=== PATIENT | female | born 1995 | race Caucasian/White ===

== ENCOUNTER 2017-02-20 17:25 | Emergency (ER) | payer MEDICAID ==
[2017-02-20 17:26] VITALS: BMI 23.4
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
[2017-02-20 18:02] LABS: BASO # 0.1 K/uL (0.0-0.2); EOS # 0.1 K/uL (0.0-0.7); EOS % 1.1 % (0.0-4.0); HEMATOCRIT 43.3 % (34.0-47.0); LYMPH # 1.8 K/uL (1.0-4.3); LYMPH % 22.6 % (20.0-40.0); MEAN CELL VOLUME 94.8 fL (81.0-99.0); MEAN CORPUSCULAR HEMOGLOBIN 32.3 pg (27.0-31.0); MEAN PLATELET VOLUME 7.3 fL (7.2-11.7); MONO # 0.5 K/uL (0.0-0.8); MONO % 6.8 % (0.0-10.0); RED CELL DISTRIBUTION WIDTH 13.3 % (11.5-14.5); WHITE BLOOD COUNT 7.8 K/uL (4.8-10.8)
[2017-02-20 18:03] LABS: RBC URINE 2 /hpf (0-3); URINE BACTERIA RARE (<OCC); URINE BILIRUBIN NEGATIVE (NEGATIVE); URINE BLOOD NEGATIVE (NEGATIVE); URINE COLOR Yellow (YELLOW); URINE GLUCOSE (UA) NORMAL (Normal); URINE KETONE NEGATIVE (NEGATIVE); URINE LEUKOCYTE ESTERASE NEG Leu/uL (Negative); URINE PROTEIN NEGATIVE (NEGATIVE); URINE UROBILINOGEN NORMAL mg/dL (0.2-1.0); WBC URINE 2 /hpf (0-5)
[2017-02-20 18:14] LABS: CHLORIDE 100 mmol/L (98-107); POTASSIUM 4.2 mmol/L (3.6-5.2); SODIUM 141 mmol/L (132-148)
[2017-02-20 18:16] LABS: GFR AFRICAN-AMERICAN > 60
[2017-02-20 18:17] LABS: ALB/GLOB RATIO 1.2 (1.0-2.1); ALKALINE PHOSPHATASE 54 U/L (38-126); ALT/SGPT 20 U/L (9-52); AST/SGOT 16 U/L (14-36); BILIRUBIN,TOTAL 0.4 mg/dL (0.2-1.3); BLOOD UREA NITROGEN 13 mg/dL (7-17); CALCIUM 9.6 mg/dl (8.6-10.4); CARBON DIOXIDE 27 mmol/L (22-30); GLUCOSE,RANDOM 92 mg/dL (65-105); TOTAL PROTEIN 7.2 g/dL (6.3-8.3)
[2017-02-20 18:18] LABS: ALCOHOL SERUM < 10 mg/dl (0-10)
[2017-02-20 19:37] VITALS: BP 103/71; PULSE 76; RESP 20; TEMP 98.1
[2017-02-21 08:24] VITALS: O2SAT 99
== END 2017-02-20 19:37 | disposition home or self-care (01) ==
LOC: C.ER 17:25
DX: F31.9 Bipolar disorder, unspecified (principal); F90.9 Attention-deficit hyperactivity disorder, unspecified type

== ENCOUNTER 2017-03-23 01:28 | Emergency (ER) | payer MEDICAID ==
[2017-03-23 01:43] VITALS: RESP 20; TEMP 99; O2SAT 100
[2017-03-23 01:58] LABS: RBC URINE 1 /hpf (0-3); URINE BACTERIA RARE (<OCC); URINE BILIRUBIN NEGATIVE (NEGATIVE); URINE BLOOD NEGATIVE (NEGATIVE); URINE COLOR Yellow (YELLOW); URINE GLUCOSE (UA) NORMAL (Normal); URINE KETONE NEGATIVE (NEGATIVE); URINE LEUKOCYTE ESTERASE NEG Leu/uL (Negative); URINE PROTEIN NEGATIVE (NEGATIVE); WBC URINE 2 /hpf (0-5)
[2017-03-23 02:15] LABS: BASO # 0.1 K/uL (0.0-0.2); BASO % 0.7 % (0.0-2.0); EOS # 0.1 K/uL (0.0-0.7); EOS % 1.9 % (0.0-4.0); HEMATOCRIT 41.5 % (34.0-47.0); LYMPH # 2.6 K/uL (1.0-4.3); LYMPH % 33.8 % (20.0-40.0); MEAN CELL VOLUME 95.8 fL (81.0-99.0); MEAN CORPUSCULAR HEMOGLOBIN 32.7 pg (27.0-31.0); MEAN CORPUSCULAR HGB CONC 34.1 g/dL (33.0-37.0); MEAN PLATELET VOLUME 8.1 fL (7.2-11.7); MONO # 0.4 K/uL (0.0-0.8); MONO % 4.9 % (0.0-10.0); NRBC % 0.2 % (0.0-2.0); RED CELL DISTRIBUTION WIDTH 12.8 % (11.5-14.5); WHITE BLOOD COUNT 7.8 K/uL (4.8-10.8)
[2017-03-23 02:25] LABS: CHLORIDE 101 mmol/L (98-107); SODIUM 141 mmol/L (132-148)
[2017-03-23 02:27] LABS: AST/SGOT 15 U/L (14-36); BILIRUBIN,TOTAL 0.4 mg/dL (0.2-1.3); CARBON DIOXIDE 25 mmol/L (22-30); GFR AFRICAN-AMERICAN > 60
[2017-03-23 02:28] LABS: ALB/GLOB RATIO 1.3 (1.0-2.1); ALKALINE PHOSPHATASE 41 U/L (38-126); ALT/SGPT 23 U/L (9-52); BLOOD UREA NITROGEN 11 mg/dL (7-17); CALCIUM 8.5 mg/dl (8.6-10.4); GLUCOSE,RANDOM 58 mg/dL (65-105); TOTAL PROTEIN 7.1 g/dL (6.3-8.3)
[2017-03-23] MEDS ORDERED: cefTRIAXone (Rocephin) 250 mg Inj IM STA (03:29)
--- NOTE | 2017-03-23 03:34 | C.PDOC ---
History Of Present Illness 21 year old female presents to the ED with complaints of abdominal pain intermittently for one month. Patient notes pain is exacerbated by movement and has associated nausea and increased frequency of urination. She states doctor believes she has "ovarian cysts" and referred the patient to have a US performed but she has not followed up. Patient denies fever, vomiting, vaginal bleeding, or diarrhea. Time Seen by Provider: 03/23/17 01:34 Chief Complaint (Nursing): Abdominal Pain History Per: Patient History/Exam Limitations: no limitations Onset/Duration Of Symptoms: Intermittent Episodes (1 month ) Current Symptoms Are (Timing): Still Present Location Of Pain/Discomfort: Suprapubic Radiation Of Pain To:: None Quality Of Discomfort: "Pain" Associated Symptoms: Nausea. denies: Fever, Chills, Vomiting, Diarrhea Exacerbating Factors: None Alleviating Factors: None Recent travel outside of the [place]: No Abnormal Vaginal Bleeding: No Past Medical History Reviewed: Historical Data, Nursing Documentation, Vital Signs Vital Signs: Last Vital Signs Temp 99 F 03/23/17 01:36 Pulse 78 03/23/17 05:30 Resp 20 03/23/17 05:30 BP 107/62 03/23/17 05:30 Pulse Ox 100 03/23/17 05:30 Family History: States: Unknown Family Hx - Social History Hx Alcohol Use: Yes Hx Substance Use: Yes - Immunization History Hx Tetanus Toxoid Vaccination: No Hx Influenza Vaccination: No Hx Pneumococcal Vaccination: No Review Of Systems Constitutional: Negative for: Fever, Chills Cardiovascular: Negative for: Chest Pain, Palpitations Respiratory: Negative for: Cough, Shortness of Breath Gastrointestinal: Positive for: Nausea, Abdominal Pain. Negative for: Vomiting , Diarrhea Genitourinary: Positive for: Frequency (increased frequency ). Negative for: Dysuria, Hematuria Physical Exam - Physical Exam Appears: Non-toxic, No Acute Distress Skin: Warm, Dry, No Rash Head: Atraumatic, Normacephalic Eye(s): bilateral: Normal Inspection Oral Mucosa: Moist Chest: Symmetrical, No Deformity Cardiovascular: Rhythm Regular, No Friction Rub, No Murmur Respiratory: Normal Breath Sounds, No Rales, No Rhonchi, No Wheezing Gastrointestinal/Abdominal: Soft, No Tenderness, No Distention, No Guarding, No Rebound Pelvic: Normal External Exam, No Vaginal Bleeding, Vaginal Discharge (scant yellow/hancock discharge ), No Cervical Motion Tenderness Extremity: Normal ROM, No Tenderness Neurological/Psych: Oriented x3, Normal Speech, Normal Motor Gait: Steady ED Course And Treatment - Laboratory Results Result Diagrams: 03/23/17 02:12 03/23/17 02:12 O2 Sat by Pulse Oximetry: 100 (room air ) Progress Note: Labs were ordered and patient was given Zithromax, Rocephin, and Toradol. Disposition - Disposition Referrals: [facility] [Outside] Disposition: HOME/ ROUTINE Disposition Time: 05:01 Condition: GOOD Additional Instructions: Follow up with the medical doctor within 1-2 days. Return if worsened. Prescriptions: Doxycycline Hyclate 100 mg PO BID #20 cap Ibuprofen Susp [Motrin Oral Susp] 400 mg PO Q6 PRN #250 ml PRN Reason: Fever metroNIDAZOLE [Flagyl] 500 mg PO BID #20 tab Instructions: Vaginitis (ED) Forms: [email or web address] (Niuean) - Clinical Impression Clinical Impression: Vaginitis - PA / BUDGET DIRECTOR / Resident Statement MD/DO has reviewed & agrees with the documentation as recorded. - Scribe Statement The provider has reviewed the documentation as recorded by the Scribe Kay Moe All medical record entries made by the Scribe were at my direction and personally dictated by me. I have reviewed the chart and agree that the record accurately reflects my personal performance of the history, physical exam, medical decision making, and the department course for this patient. I have also personally directed, reviewed, and agree with the discharge instructions and disposition.
[2017-03-23 05:32] VITALS: BP 107/62; PULSE 78
== END 2017-03-23 05:32 | disposition home or self-care (01) ==
LOC: C.ER 01:28
DX: N76.0 Acute vaginitis (principal)
CPT/HCPCS: 80053; 81001; 82948; 83690; 84703; 85025; 96372; 96374; 99285; J0696; J1885

== ENCOUNTER 2017-08-21 21:06 | Emergency (ER) | payer MEDICAID ==
[2017-08-21 21:07] VITALS: BMI 23.4
[2017-08-21 21:41] VITALS: BP 112/78; PULSE 87; TEMP 98.2; O2SAT 100
--- NOTE | 2017-08-21 22:54 | C.PDOC ---
History Of Present Illness 22 year old female presents to the ED for evaluation of bilateral breast pain intermittently x2 weeks. Patient has family hx breast cancer, one aunt with breast CA. Patient also requesting test. No other acute complaints at this time. Time Seen by Provider: 08/21/17 21:53 Chief Complaint (Nursing): Breast Problem History Per: Patient History/Exam Limitations: no limitations Onset/Duration Of Symptoms: Days Current Symptoms Are (Timing): Still Present Recent travel outside of the [place]: No Past Medical History Reviewed: Historical Data, Nursing Documentation, Vital Signs Vital Signs: Last Vital Signs Temp 98.2 F 08/21/17 21:36 Pulse 87 08/21/17 21:36 Resp 20 08/21/17 22:59 BP 112/78 08/21/17 21:36 Pulse Ox 100 08/21/17 23:51 - Medical History PMH: Bipolar Disorder, Depression Denies: Chronic Kidney Disease Family History: States: Other Other Family History: Aunt with breast CA - Social History Hx Tobacco Use: Yes Hx Alcohol Use: Yes Hx Substance Use: Yes - Immunization History Hx Tetanus Toxoid Vaccination: Yes Hx Influenza Vaccination: No Hx Pneumococcal Vaccination: No Review Of Systems Constitutional: Negative for: Fever, Chills ENT: Negative for: Ear Pain, Throat Pain Cardiovascular: Negative for: Chest Pain Respiratory: Positive for: Other (Breast pain). Negative for: Cough, Shortness of Breath Gastrointestinal: Negative for: Nausea, Vomiting, Abdominal Pain Physical Exam - Physical Exam Appears: Well, Non-toxic, No Acute Distress Skin: Normal Color, Warm, Dry Head: Atraumatic, Normacephalic Eye(s): bilateral: Normal Inspection, PERRL, EOMI Chest: Symmetrical, Other (Breast exam: no skin changes, no erythema, no nipple inversion, no palpable masses, symmetrical ) Cardiovascular: Rhythm Regular Respiratory: Normal Breath Sounds Extremity: Normal ROM Neurological/Psych: Oriented x3, Normal Speech ED Course And Treatment O2 Sat by Pulse Oximetry: 100 Progress Note: Urine HCG negative. Pt will follow up in medical or apprenticeship representative clinic for further evaluation. Advised tylenol or advil for pain. Will discharge patient home for outpatient follow up. Pt understand and agreed with plan Disposition Counseled Patient/Family Regarding: Diagnosis, Need For Followup, Rx Given - Disposition Referrals: [facility] [Outside] Disposition: HOME/ ROUTINE Disposition Time: 22:52 Condition: STABLE Additional Instructions: Tylenol or advil for pain Follow up with medical clinic for further evaluation Return to ER if worse Instructions: Mastalgia (DC) Forms: [employer] (Urdu) - Clinical Impression Clinical Impression: Pain of breast - Scribe Statement The provider has reviewed the documentation as recorded by the Scribe (Noe Field) All medical record entries made by the Scribe were at my direction and personally dictated by me. I have reviewed the chart and agree that the record accurately reflects my personal performance of the history, physical exam, medical decision making, and the department course for this patient. I have also personally directed, reviewed, and agree with the discharge instructions and disposition.
[2017-08-21 22:59] VITALS: RESP 20
== END 2017-08-21 22:59 | disposition home or self-care (01) ==
LOC: C.ER 21:06
DX: N64.4 Mastodynia (principal); Z72.0 Tobacco use; Z80.3 Family history of malignant neoplasm of breast

== ENCOUNTER 2017-09-10 14:40 | Emergency (ER) | payer MEDICAID ==
[2017-09-10 14:45] VITALS: BMI 22.6
[2017-09-10 14:47] VITALS: RESP 18; O2SAT 100
[2017-09-10] MEDS ORDERED: Sodium Chloride 0.9% 1,000 ML IV ONE (15:02)
--- NOTE | 2017-09-10 15:20 | C.PDOC ---
History Of Present Illness 22 year old male presents to the ED c/o abdominal pain that has been worsening for the past few hours. Patient states her pain is located in the right adnexal and suprapubic area associated with nausea, and dizziness. Patient denies fever , dysuria, vaginal bleeding, vaginal discharge, back pain. Patient's LMP was 3 weeks ago. Time Seen by Provider: 09/10/17 14:54 Chief Complaint (Nursing): Abdominal Pain History Per: Patient History/Exam Limitations: no limitations Onset/Duration Of Symptoms: Days Current Symptoms Are (Timing): Still Present Location Of Pain/Discomfort: Suprapubic Radiation Of Pain To:: None Quality Of Discomfort: "Pain" Associated Symptoms: Nausea Exacerbating Factors: None Alleviating Factors: None Recent travel outside of the [place]: No Additional History Per: Patient Abnormal Vaginal Bleeding: No Last Menstral Period: 3 weeks ago Past Medical History Reviewed: Historical Data, Nursing Documentation, Vital Signs Vital Signs: Last Vital Signs Temp 98.1 F 09/10/17 18:17 Pulse 60 09/10/17 18:17 Resp 18 09/10/17 18:17 BP 105/59 L 09/10/17 18:17 Pulse Ox 100 09/10/17 18:28 - Medical History PMH: Bipolar Disorder, Depression Denies: Chronic Kidney Disease Surgical History: No Surg Hx Family History: States: Unknown Family Hx - Social History Hx Tobacco Use: Yes Hx Alcohol Use: Yes Hx Substance Use: Yes - Immunization History Hx Tetanus Toxoid Vaccination: Yes Hx Influenza Vaccination: No Hx Pneumococcal Vaccination: No Review Of Systems Except As Marked, All Systems Reviewed And Found Negative. Gastrointestinal: Positive for: Nausea, Abdominal Pain Physical Exam - Physical Exam Appears: Non-toxic, No Acute Distress Skin: Normal Color, Warm, Dry Head: Atraumatic, Normacephalic Eye(s): bilateral: Normal Inspection Nose: No Discharge Oral Mucosa: Moist Neck: Normal ROM, Supple Chest: Symmetrical Cardiovascular: Rhythm Regular, No Murmur Respiratory: Normal Breath Sounds, No Rales, No Rhonchi, No Wheezing Gastrointestinal/Abdominal: Soft, Tenderness (Suprapubic), No Guarding, No Rebound Extremity: Normal ROM, No Tenderness, No Swelling Neurological/Psych: Oriented x3 ED Course And Treatment - Laboratory Results Result Diagrams: 09/10/17 15:17 09/10/17 15:17 O2 Sat by Pulse Oximetry: 100 (On RA) Pulse Ox Interpretation: Normal Medical Decision Making Medical Decision Making: Impression: abdominal pain onsider pelvic pathology, uti, colitis, appendiciits Plan: * Labs * IV fluids * Tylenol 975 mg PO * Zofran 4 mg IVP * UA * Transvaginal US pt with rlq ttp ct added. neg. pt observed on phone in nad. pain improved. asking for dc Disposition - Disposition Referrals: Mau Larkin MD [Staff Provider] - [facility] [Outside] [facility] [Outside] Disposition: HOME/ ROUTINE Disposition Time: 18:14 Condition: STABLE Additional Instructions: follow up with specialist and clinic return to er with worsening symptoms or concerns Instructions: Acute Abdomen (Belly Pain) Forms: [facility] (Syriac) - Clinical Impression Clinical Impression: Abdominal pain - Scribe Statement The provider has reviewed the documentation as recorded by the Scribe Arsenio Nuno All medical record entries made by the Scribe were at my direction and personally dictated by me. I have reviewed the chart and agree that the record accurately reflects my personal performance of the history, physical exam, medical decision making, and the department course for this patient. I have also personally directed, reviewed, and agree with the discharge instructions and disposition.
[2017-09-10 15:23] LABS: BASO # 0.1 K/uL (0.0-0.2); BASO % 1.1 % (0.0-2.0); EOS # 0.1 K/uL (0.0-0.7); EOS % 2.1 % (0.0-4.0); HEMOGLOBIN 14.5 g/dL (11.0-16.0); LYMPH # 2.3 K/uL (1.0-4.3); LYMPH % 34.4 % (20.0-40.0); MEAN CELL VOLUME 95.3 fL (81.0-99.0); MEAN CORPUSCULAR HEMOGLOBIN 32.6 pg (27.0-31.0); MEAN CORPUSCULAR HGB CONC 34.2 g/dL (33.0-37.0); MEAN PLATELET VOLUME 7.4 fL (7.2-11.7); MONO # 0.5 K/uL (0.0-0.8); NEUT # 3.7 K/uL (1.8-7.0); NEUT % 55.4 % (50.0-75.0); NRBC % 0.1 % (0.0-2.0); RBC 4.45 Mil/uL (3.80-5.20); RED CELL DISTRIBUTION WIDTH 12.8 % (11.5-14.5); WHITE BLOOD COUNT 6.6 K/uL (4.8-10.8)
[2017-09-10 15:25] LABS: HCG,QUALITATIVE URINE NEGATIVE (NEGATIVE)
[2017-09-10 15:26] LABS: SQUAMOUS EPITHIAL 3 /hpf (0-5); URINE BILIRUBIN NEGATIVE (NEGATIVE); URINE BLOOD NEGATIVE (NEGATIVE); URINE CLARITY Clear (Clear); URINE COLOR Yellow (YELLOW); URINE GLUCOSE (UA) NORMAL (Normal); URINE LEUKOCYTE ESTERASE NEG Leu/uL (Negative); URINE PROTEIN NEGATIVE (NEGATIVE); URINE UROBILINOGEN NORMAL mg/dL (0.2-1.0)
[2017-09-10] MEDS ORDERED: Sodium Chloride 0.9% 1,000 ML ONE (15:30)
[2017-09-10 15:31] LABS: PROTHROMBIN TIME 10.9 SECONDS (9.7-12.2)
[2017-09-10 15:36] LABS: ALB/GLOB RATIO 1.3 (1.0-2.1); ALT/SGPT 20 U/L (9-52); AST/SGOT 23 U/L (14-36); BLOOD UREA NITROGEN 10 mg/dL (7-17); CALCIUM 8.4 mg/dl (8.6-10.4); GFR AFRICAN-AMERICAN > 60; GFR NON-AFRICAN AMERICAN > 60; LIPASE 70 U/L (23-300)
--- NOTE | 2017-09-10 16:33 | US ---
HISTORY: pelvic pain COMPARISON: None available. TECHNIQUE: Real-time transabdominal pelvic ultrasound was performed. In addition a transvaginal pelvic ultrasound was necessary to better depict pelvic anatomy. FINDINGS: UTERUS: Measures 7.7 x 3.3 x 4.7 cm. Anteverted. ENDOMETRIUM: Measures approximately 7 mm in diameter. CERVIX: No cervical abnormality identified. RIGHT OVARY: Measures 3.1 x 2.1 x 2.9 cm. Blood flow is demonstrated. LEFT OVARY: Measures 3.5 x 2.3 x 3.2 cm. Blood flow is demonstrated. FREE FLUID: No significant free fluid noted. OTHER FINDINGS: None. IMPRESSION: Unremarkable pelvic ultrasound as above.
[2017-09-10] MEDS ORDERED: Iodixanol 320 MG/ML 100 ML BOTTLE IV ONE (17:18)
--- NOTE | 2017-09-10 18:03 | CT ---
PROCEDURE: CT Abdomen and Pelvis with contrast HISTORY: lower abd pain COMPARISON: 02/14/2016 TECHNIQUE: Contrast dose: 100 mL Visipaque 320 Radiation dose: Total exam DLP = 261.67 mGy-cm. This CT exam was performed using one or more of the following dose reduction techniques: Automated exposure control, adjustment of the mA and/or kV according to patient size, and/or use of iterative reconstruction technique. FINDINGS: LOWER THORAX: Unremarkable. LIVER: Unremarkable. No gross lesion or ductal dilatation. GALLBLADDER AND BILE DUCTS: Unremarkable. PANCREAS: Unremarkable. No gross lesion or ductal dilatation. SPLEEN: Unremarkable. ADRENALS: Unremarkable. No mass. KIDNEYS AND URETERS: Unremarkable. No hydronephrosis. No solid mass. VASCULATURE: Unremarkable. No aortic aneurysm. BOWEL: Unremarkable. No obstruction. No gross mural thickening. APPENDIX: Normal appendix. PERITONEUM: Unremarkable. No free fluid. No free air. LYMPH NODES: Unremarkable. No enlarged lymph nodes. BLADDER: Unremarkable. REPRODUCTIVE: Normal uterus. No adnexal masses. BONES: No acute fracture. OTHER FINDINGS: None. IMPRESSION: Unremarkable contrast enhanced CT of the abdomen and pelvis. No evidence of acute appendicitis.
[2017-09-10 18:19] VITALS: BP 105/59; PULSE 60; TEMP 98.1
== END 2017-09-10 18:18 | disposition home or self-care (01) ==
LOC: C.ER 14:40
DX: R10.9 Unspecified abdominal pain (principal)
CPT/HCPCS: 74177; 76830; 76856; 80053; 81001; 83690; 84703; 85025; 85610; 85730; 96361; 96374; 99284; J2405; J7040; Q9967

== ENCOUNTER 2017-11-20 02:15 | Emergency (ER) | payer MEDICAID ==
[2017-11-20 02:16] VITALS: BMI 22.6
[2017-11-20 02:55] LABS: HCG,QUALITATIVE URINE NEGATIVE (NEGATIVE)
[2017-11-20 02:59] LABS: SQUAMOUS EPITHIAL 2 /hpf (0-5); URINE BILIRUBIN NEGATIVE (NEGATIVE); URINE BLOOD NEGATIVE (NEGATIVE); URINE CLARITY Hazy (Clear); URINE COLOR Yellow (YELLOW); URINE GLUCOSE (UA) NORMAL (Normal); URINE LEUKOCYTE ESTERASE NEG Leu/uL (Negative); URINE PROTEIN NEGATIVE (NEGATIVE)
--- NOTE | 2017-11-20 04:31 | US ---
EXAM: US Pelvis Complete, Transabdominal US Pelvis, Transvaginal CLINICAL HISTORY: 22 years old, female; Pain; Pelvic pain; Additional info: Left plevic pain TECHNIQUE: Real-time transabdominal and transvaginal pelvic ultrasound (complete) with image documentation. Transvaginal imaging was used for better evaluation of the endometrium and adnexa. COMPARISON: No relevant prior studies available. FINDINGS: Uterus/cervix: Uterus measures 7.8 x 4.2 x 2.8 cm in size. No myometrial mass. Endometrium: 0.8 cm in thickness. Right ovary: 3.6 x 2.0 x 2.7 cm in size. No mass. Small follicles. Normal flow. Left ovary: 3.7 x 2.0 x 3.0 cm in size. No mass. Small follicles. Normal flow. Free fluid: No significant free fluid. Bladder: Unremarkable as visualized. IMPRESSION: 1.No acute findings.
--- NOTE | 2017-11-20 04:39 | C.PDOC ---
Time Seen by Provider: 11/20/17 02:37 Chief Complaint (Nursing): Abdominal Pain History Per: Patient Onset/Duration Of Symptoms: Days (about 1-2 weeks), Intermittent Episodes Current Symptoms Are (Timing): Still Present Severity: Moderate Location Of Pain/Discomfort: LLQ Quality Of Discomfort: "Pain" Associated Symptoms: Constipation Additional History Per: Prior Records Abnormal Vaginal Bleeding: No Past Medical History Reviewed: Historical Data, Nursing Documentation, Vital Signs Vital Signs: Last Vital Signs Temp 98.3 F 11/20/17 02:24 Pulse 80 11/20/17 02:24 Resp 14 11/20/17 02:24 BP 104/66 11/20/17 02:24 Pulse Ox 98 11/20/17 02:24 - Medical History PMH: Bipolar Disorder, Depression Surgical History: No Surg Hx Family History: States: Unknown Family Hx - Social History Hx Tobacco Use: Yes Hx Alcohol Use: Yes Hx Substance Use: Yes - Immunization History Hx Tetanus Toxoid Vaccination: Yes Hx Influenza Vaccination: No Hx Pneumococcal Vaccination: No Review Of Systems Except As Marked, All Systems Reviewed And Found Negative. Constitutional: Negative for: Fever, Weakness Cardiovascular: Negative for: Chest Pain Respiratory: Negative for: Shortness of Breath Gastrointestinal: Positive for: Abdominal Pain, Constipation. Negative for: Vomiting, Melena, Hematochezia, Hematemesis Genitourinary: Negative for: Dysuria Musculoskeletal: Negative for: Neck Pain Skin: Negative for: Rash Neurological: Negative for: Weakness, Numbness Physical Exam - Physical Exam Appears: Non-toxic, No Acute Distress Skin: Normal Color, Warm, Dry, No Rash Head: Atraumatic, Normacephalic Eye(s): bilateral: Normal Inspection, PERRL, EOMI Neck: Normal ROM, Supple Cardiovascular: Rhythm Regular Respiratory: Normal Breath Sounds, No Accessory Muscle Use Gastrointestinal/Abdominal: Soft, No Tenderness Back: No CVA Tenderness Extremity: Normal ROM Neurological/Psych: Oriented x3, Normal Motor, Normal Sensation ED Course And Treatment - Laboratory Results Urine POC: Negative O2 Sat by Pulse Oximetry: 98 Pulse Ox Interpretation: Normal - CT Scan/US Pelvic US Other Rad Studies (CT/US): Read By Radiologist, Radiology Report Reviewed CT/US Interpretation: IMPRESSION: 1. No acute findings. Reassessment Condition: Improved Disposition Counseled Patient/Family Regarding: Studies Performed, Diagnosis, Need For Followup, Rx Given - Disposition Disposition: HOME/ ROUTINE Disposition Time: 04:39 Condition: STABLE Additional Instructions: Follow up with your [facility] for further evaluation and treatment. Return to the ER if you develop fever, vomiting, worsening of symptoms or if you have any other concerns. Prescriptions: Naproxen 375 mg PO BID PRN #20 tablet PRN Reason: Pain, Moderate (4-7) Polyethylene Glycol 3350 [Miralax] 17 gm PO DAILY #7 packet Forms: [employer] (Tuvaluan), General Discharge Instructions - Clinical Impression Clinical Impression: LLQ pain
[2017-11-20 04:57] VITALS: BP 95/64; PULSE 61; RESP 18; TEMP 97.7; O2SAT 99
== END 2017-11-20 04:57 | disposition home or self-care (01) ==
LOC: C.ER 02:15
DX: R10.32 Left lower quadrant pain (principal)

== ENCOUNTER 2018-01-23 21:44 | Emergency (ER) | payer MEDICAID ==
[2018-01-23 21:44] VITALS: BMI 22.6
[2018-01-23 21:51] VITALS: BP 112/78; PULSE 100; RESP 20; TEMP 98.1; O2SAT 99
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
--- NOTE | 2018-01-24 09:30 | RAD ---
Date of service: 01/23/2018 PROCEDURE: Radiographs of the Mandible HISTORY: left mandible trauma, pain COMPARISON: None available. TECHNIQUE: Multiple radiographs of the mandible were obtained. FINDINGS: Technically limited examination. Mandible intact, without frature or focal lesion. No temporomandibular joint dislocation. To the extent visualized on this study, the remainder of the facial bones are grossly intact. IMPRESSION: Unremarkable radiographs of the mandible. Technically limited.
== END 2018-01-23 23:42 | disposition home or self-care (01) ==
LOC: C.ER 21:44
DX: S00.83XA Contusion of other part of head, initial encounter (principal); Y04.0XXA Assault by unarmed brawl or fight, initial encounter